=== PATIENT | female | born 1980 | race African-American/Black ===

== ENCOUNTER 2017-07-11 12:53 | Emergency (ER) | payer MEDICAID ==
[~2017-07-11] VITALS: Ht 167.6 cm; Wt 91.0 kg
[2017-07-11 13:28] VITALS: BP 144/76
== END 2017-07-11 20:00 | disposition left against medical advice (07) ==
LOC: ER 13:58
DX: R42 Dizziness and giddiness (principal); Z53.21 Procedure and treatment not carried out due to patient leaving prior to being seen by health care provider

== ENCOUNTER 2017-08-05 06:28 | Emergency (ER) | payer MEDICAID ==
[~2017-08-05] VITALS: Ht 160 cm; Wt 91.0 kg
[2017-08-05] MEDS ORDERED: DIPHENHYDRAMINE 50MG/ML VIAL IV ONE (11:00)
[2017-08-05] MEDS ORDERED: FAMOTIDINE 20MG/2ML VIAL IV ONE (11:00)
[2017-08-05] MEDS ORDERED: KETOROLAC 30MG/ML VIAL IV ONE (11:00)
[2017-08-05] MEDS ORDERED: METHYLPREDNISOLONE SOD SUCC 125 MG/2 ML VIAL IV ONE (11:00)
[2017-08-05 11:33] LABS: CLARITY URINE CLEAR (CLEAR); COLOR URINE YELLOW (YELLOW); KETONES URINE NEGATIVE (NEGATIVE); LEUKOCYTE ESTERASE URINE 1+ (NEGATIVE); NITRITE URINE NEGATIVE (NEGATIVE); OCCULT BLOOD URINE NEGATIVE (NEGATIVE); PROTEIN URINE NEGATIVE (NEGATIVE); SPECIFIC GRAVITY URINE 1.015 (1.005-1.030); UROBILINOGEN URINE 0.2 E.U./dL (0.2-1.0)
[2017-08-05] MEDS ORDERED: VANCOMYCIN 1 G PREMIX 200 ML IV SCH (13:00)
[2017-08-05] MEDS ORDERED: HYDROCODONE/APAP 7.5/325MG 1 TAB TABLET PO ONE (13:30)
[2017-08-05 15:18] VITALS: BP 113/69
== END 2017-08-05 15:30 | disposition home or self-care (01) ==
LOC: ER 06:28
DX: L03.113 Cellulitis of right upper limb (principal); L50.0 Allergic urticaria; I10 Essential (primary) hypertension; F17.200 Nicotine dependence, unspecified, uncomplicated; T78.40XA Allergy, unspecified, initial encounter
CPT/HCPCS: 81001; 81025; 96365; 96375; 99284; J1200; J1885; J2930; J3370; J3490; Z7610

== ENCOUNTER 2019-07-21 20:33 | Observation (INO) | payer MEDICAID ==
[~2019-07-21] VITALS: Ht 160 cm; Wt 88.0 kg
[2019-07-21] MEDS ORDERED: FERR325T6 PO (21:13)
[2019-07-21] MEDS ORDERED: CALC600T12 PO (21:13)
[2019-07-21] MEDS ORDERED: PREN1TAB78 PO (21:13)
== END 2019-07-21 22:00 | disposition home or self-care (01) ==
LOC: 8 EST LDRP 20:33
PROVIDERS: ADMIT Obstetrics & Gynecology; ATTEND Obstetrics & Gynecology
DX: O62.9 Abnormality of forces of labor, unspecified (principal); O26.893 Other specified pregnancy related conditions, third trimester; R10.2 Pelvic and perineal pain; Z3A.37 37 weeks gestation of pregnancy
CPT/HCPCS: 99281; G0378

== ENCOUNTER 2019-07-31 17:46 | Inpatient (IN) | payer MEDICAID, OTHER ==
[~2019-07-31] VITALS: Ht 160 cm; Wt 88.0 kg
[~2019-07-31 17:46] MED LIST: CALC600T12 PO; FERR325T6 PO; PREN1TAB78 PO
[2019-07-31] MEDS ORDERED: METHYLERGONOVINE MALEATE 0.2 MG/ML IM PRN (19:30)
[2019-07-31] MEDS ORDERED: MINERAL OIL 30ML BOTTLE PO ONE (19:30)
[2019-07-31] MEDS ORDERED: NALOXONE HCL 0.4 MG/ML 1ML VIAL IM PRN (19:30)
[2019-07-31] MEDS ORDERED: LIDOCAINE HCL 1% 20ML VIAL (Pyxis) INJ INFIL SCH (19:30)
[2019-07-31] MEDS ORDERED: RHO(D) IMMUNE GLOBULIN 300 MCG/SYR IM NR (20:00)
[2019-07-31] MEDS ORDERED: DEXT 5%/LACTATED RINGERS 1,000 ML IV SCH (20:00)
[2019-07-31 20:04] LABS: CLARITY URINE CLEAR (CLEAR); COLOR URINE YELLOW (YELLOW); KETONES URINE NEGATIVE (NEGATIVE); LEUKOCYTE ESTERASE URINE TRACE (NEGATIVE); NITRITE URINE NEGATIVE (NEGATIVE); OCCULT BLOOD URINE NEGATIVE (NEGATIVE); PROTEIN URINE NEGATIVE (NEGATIVE); SPECIFIC GRAVITY URINE 1.013 (1.005-1.030); UROBILINOGEN URINE 0.2 E.U./dL (0.2-1.0)
[2019-07-31 20:06] LABS: BASOPHILS % 0.5 % (0.0-2.0); EOSINOPHILS % 2.2 % (0.0-5.0); HEMATOCRIT. 30.1 % (36.0-48.0); LYMPHOCYTES % 23.6 % (20.0-50.0); MEAN CORPUSCULAR HEMOGLOBIN 26.5 pg (28.0-32.0); MEAN CORPUSCULAR VOLUME 79.8 fL (81.0-99.0); MEAN PLATELET VOLUME 10.7 fl (7.4-10.4); NEUTROPHILS % 65.7 % (40.0-76.0); PLATELET 234 x1000/uL (130-400); RED BLOOD CELL COUNT 3.77 mill/uL (4.2-5.4); RED CELL DISTRIBUTION WIDTH 14.1 % (11.6-14.6)
[2019-07-31 20:12] LABS: INR 0.9; PARTIAL THROMBOPLASTIN TIME 28.3 sec (23.4-31.0); PROTHROMBIN TIME 9.4 sec (9.6-11.0)
[2019-07-31 20:22] LABS: *BARBITURATES SCREEN URINE NEGATIVE (NEGATIVE); *BENZODIAZEPINES SCREEN URINE NEGATIVE (NEGATIVE); *COCAINE SCREEN URINE NEGATIVE (NEGATIVE); METHADONE URINE SCREEN NEGATIVE (NEGATIVE); OPIATES URINE SCREEN NEGATIVE (NEGATIVE)
[2019-07-31 20:23] LABS: *AMPHETAMINES SCREEN URINE NEGATIVE (NEGATIVE); CANNABINOID URINE SCREEN NEGATIVE (NEGATIVE); PHENCYCLIDINE URINE SCREEN NEGATIVE (NEGATIVE)
[2019-07-31 20:44] LABS: HEPATITIS B SURFACE ANTIGEN NEGATIVE
[2019-07-31] MEDS: CLINDAMYCIN 900 MG PREMIX 50 ML IV SCH (22:19)
[2019-07-31] MEDS ORDERED: ACETAMINOPHEN 325MG TABLET PO NR (23:00)
[2019-07-31] MEDS: DEXT 5%/LR + PITOCIN 20UNITS/L 1,000 ML IV SCH (23:30)
[2019-08-01] MEDS ORDERED: FENTANYL CITRATE/PF 50MCG/ML 2ML VIAL ONE (00:27)
[2019-08-01] MEDS ORDERED: BUPIVACAINE HCL/PF 0.25% (2.5MG/ML) 10ML ONE (00:28)
[2019-08-01] MEDS ORDERED: ROPIVACAINE HCL 2MG/ML (0.2%) 200ML BOTTLE IR ONE (00:30)
[2019-08-01] MEDS ORDERED: ROPIVACAINE HCL/PF EPIDURAL 200 ML EPI PRN (00:30)
[2019-08-01] MEDS: CLINDAMYCIN 900 MG PREMIX 50 ML IV SCH (06:11)
[2019-08-01] MEDS ORDERED: DEXT 5%/LR + PITOCIN 20UNITS/L 1,000 ML IV SCH (08:29)
[2019-08-01] MEDS ORDERED: METHYLERGONOVINE MALEATE 0.2 MG/ML IM PRN (08:30)
[2019-08-01] MEDS ORDERED: IBUPROFEN 400MG TABLET PO PRN (08:30)
[2019-08-01] MEDS ORDERED: RHO(D) IMMUNE GLOBULIN 300 MCG/SYR IM PRN (08:30)
[2019-08-01] MEDS ORDERED: LANOLIN OINT 7GM TUBE TOP PRN (08:30)
[2019-08-01] MEDS: IBUPROFEN 800MG TABLET PO PRN ×3 (09:09→22:21)
[2019-08-01] MEDS: DEXT 5%/LR + PITOCIN 20UNITS/L 1,000 ML IV SCH (09:10)
[2019-08-01 11:00] VITALS: BP 115/74
[2019-08-01] MEDS ORDERED: ACETAMINOPHEN WITH CODEINE 300/30MG TABLET PO NR ×2 (12:45→19:26)
[2019-08-01 16:15] VITALS: BP 95/59
[2019-08-01] MEDS: PRENATAL VIT/FE FUMARATE/FA TABLET PO SCH (18:20)
[2019-08-01 19:54] VITALS: BP 118/61
[2019-08-02 04:14] VITALS: BP 114/68
[2019-08-02] MEDS: IBUPROFEN 800MG TABLET PO PRN ×3 (04:16→17:17)
[2019-08-02 07:33] LABS: BASOPHILS % 0.5 % (0.0-2.0); EOSINOPHILS % 1.7 % (0.0-5.0); HEMATOCRIT. 26.9 % (36.0-48.0); LYMPHOCYTES % 23.2 % (20.0-50.0); MEAN CORPUSCULAR VOLUME 81.1 fL (81.0-99.0); MEAN PLATELET VOLUME 10.5 fl (7.4-10.4); MONOCYTES % 5.6 % (2.0-8.0); PLATELET 200 x1000/uL (130-400); RED BLOOD CELL COUNT 3.32 mill/uL (4.2-5.4); RED CELL DISTRIBUTION WIDTH 14.7 % (11.6-14.6)
[2019-08-02 08:00] VITALS: BP 107/64
[2019-08-02] MEDS: PRENATAL VIT/FE FUMARATE/FA TABLET PO SCH (08:40)
[2019-08-02 20:00] VITALS: BP 100/59
[2019-08-03] MEDS: IBUPROFEN 800MG TABLET PO PRN ×2 (01:25→10:13)
[2019-08-03 04:00] VITALS: BP 117/69
[2019-08-03] MEDS: PRENATAL VIT/FE FUMARATE/FA TABLET PO SCH (10:13)
== END 2019-08-03 12:30 | disposition home or self-care (01) | DRG 560 ==
LOC: 8 EST LDRP 17:46 → OBSVTOIN 17:46 → 8EST 08-01 10:11
PROVIDERS: ADMIT Obstetrics & Gynecology; ATTEND Obstetrics & Gynecology
PROC: 10E0XZZ Delivery of Products of Conception, External Approach (ICD-10-PCS; principal; 2019-08-01)
PROC: 00HU33Z Insertion of Infusion Device into Spinal Canal, Percutaneous Approach (ICD-10-PCS; 2019-08-01)
PROC: 3E0R3BZ Introduction of Anesthetic Agent into Spinal Canal, Percutaneous Approach (ICD-10-PCS; 2019-08-01)
DX: O69.81X0 Labor and delivery complicated by cord around neck, without compression, not applicable or unspecified (principal); D64.9 Anemia, unspecified; O99.02 Anemia complicating childbirth; O99.824 Streptococcus B carrier state complicating childbirth; Z37.0 Single live birth; Z3A.38 38 weeks gestation of pregnancy
CPT/HCPCS: 36415; 76805; 76818; 80305; 81003; 85025; 86592; 86703; 86762; 86850; 86900; 87340; 99281; G0378; J2590; J2795; J3010; J3490